=== PATIENT | female | born 1935 | race Caucasian/White ===

== ENCOUNTER → 2019-11-30 | Outpatient (CLI) | payer MEDICARE | END | disposition home or self-care (01) | LOC: RAH 09:06 | PROVIDERS: ATTEND Urology | DX: N20.0 Calculus of kidney (principal) | CPT/HCPCS: 74018; 76100 ==

== ENCOUNTER → 2020-01-01 | Outpatient (CLI) | payer MEDICARE | END | disposition home or self-care (01) | LOC: RAH 14:52 | PROVIDERS: ATTEND Urology | DX: N20.0 Calculus of kidney (principal); N20.2 Calculus of kidney with calculus of ureter | CPT/HCPCS: 74018; 76100 ==

== ENCOUNTER → 2020-06-06 | Outpatient (CLI) | payer MEDICARE | END | disposition home or self-care (01) | LOC: RAH 09:49 | PROVIDERS: ATTEND Urology | DX: N20.1 Calculus of ureter (principal) | CPT/HCPCS: 74018; 76100 ==

== ENCOUNTER → 2020-12-09 | Outpatient (CLI) | payer MEDICARE | END | disposition home or self-care (01) | LOC: RAH 09:04 | PROVIDERS: ATTEND Urology | DX: N20.0 Calculus of kidney (principal); K59.00 Constipation, unspecified | CPT/HCPCS: 74018; 76100 ==

== ENCOUNTER 2022-11-19 06:32 | Observation (INO) | payer MEDICARE ==
[2022-11-15 11:47] LABS: APPEARANCE,URINE CLOUDY (CLEAR); BILIRUBIN,URINE NEGATIVE (NEGATIVE); COLOR,URINE YELLOW (YELLOW); GLUCOSE, URINE (UA) NEGATIVE (NEGATIVE); KETONES,URINE NEGATIVE (NEGATIVE); LEUKOCYTE ESTERASE ,URINE 500 Leu/uL (NEGATIVE); NITRATE,URINE NEGATIVE (NEGATIVE); PROTEIN,URINE 30 mg/dL (NEGATIVE); UROBILINOGEN,URINE 0.2 mg/dL (0.2-1.0)
[2022-11-15 11:57] LABS: BASOPHILS % (AUTO) 0.6 % (0.0-5.0); EOSINOPHILS % (AUTO) 3.2 % (0.0-8.0); HEMATOCRIT 42.7 % (36-48); LYMPHOCYTES % (AUTO) 22.2 % (21.0-51.0); MEAN CORPUSCULAR HEMOGLOBIN 30.6 pg (27.0-33.0); MEAN CORPUSCULAR HGB CONC 32.1 g/dL (32.0-36.0); MEAN CORPUSCULAR VOLUME 95.3 fL (79-99); MONOCYTES % (AUTO) 8.8 % (3.0-13.0); NEUTROPHILS % (AUTO) 64.8 % (40.0-77.0); PLATELET COUNT (AUTO) 303 K/uL (130-400); RED BLOOD CELL COUNT(AUTO) 4.48 MIL/uL (4.00-5.50); RED CELL DISTRIBUTION WIDTH 14.2 % (11.0-15.5); WHITE BLOOD COUNT (AUTO) 9.1 K/uL (4.8-10.8)
[2022-11-15 12:16] LABS: INR 0.97 (0.85-1.15); PROTHROMBIN TIME 10.6 SEC (9.6-11.6)
[2022-11-15 12:17] LABS: PARTIAL THROMBOPLASTIN TIME 29.1 SEC (26.3-35.5)
[2022-11-15 12:37] VITALS: BP 147/72
[2022-11-15 12:45] LABS: BACTERIA,URINE MANY /HPF (None Seen); MUCUS,URINE RARE LPF (None Seen); SQUAMOUS EPITHELIAL CELL,UR RARE /HPF (0-2); TRANSITIONAL EPI CELLS,URINE RARE /HPF (None Seen); WBC,URINE TNTC /HPF (0-1)
[~2022-11-19] VITALS: Ht 157.5 cm; Wt 94.1 kg
[2022-11-19] VITALS (20 sets, daily range): BP systolic 110–152; BP diastolic 38–67
[~2022-11-19 06:32] MED LIST: AMLO-257 PO; METO50 PO
[2022-11-19] MEDS ORDERED: LACTATED RINGERS 1000ML 1,000 ML IV ONE (06:56)
[2022-11-19] MEDS: CEFAZOLIN SODIUM 2 GM VIAL IVPB SCH ×2 (07:16→11:30)
[2022-11-19 09:06] LABS: CREATININE 0.8 mg/dL (0.5-1.5); POTASSIUM 4.1 mmol/L (3.5-5.1)
[2022-11-19] MEDS ORDERED: LIDOCAINE PF 100MG/5ML (2%) SYRINGE 5ML ONE (10:50)
[2022-11-19] MEDS ORDERED: PROPOFOL 10 MG/ML 20ML VIAL IV ONE (10:50)
[2022-11-19] MEDS ORDERED: GLYCOPYRROLATE 1 MG/5 ML SYRINGE ONE (10:50)
[2022-11-19] MEDS ORDERED: FENTANYL CITRATE PF 50 MCG/1 ML 2ML VIAL ONE ×2 (10:51→13:42)
[2022-11-19] MEDS ORDERED: ROCURONIUM 10MG/1ML SYR 10 MG/ML ML ONE (10:52)
[2022-11-19] MEDS ORDERED: EPHEDRINE SULFATE 50 MG/ML AMPULE ONE (11:20)
[2022-11-19] MEDS ORDERED: ONDANSETRON 4MG INJ ONE ×2 (12:37→14:51)
[2022-11-19] MEDS ORDERED: NEOSTIGMINE 5MG/5ML SYR IV ONE (13:08)
[2022-11-19] MEDS ORDERED: BUPIVACAINE/PF 0.25% 10ML VIAL IJ ONE (13:09)
[2022-11-19] MEDS ORDERED: MORPHINE 4 MG SYG ONE (15:39)
[2022-11-19] MEDS ORDERED: MORPHINE 4 MG SYG IVP PRN (18:30)
[2022-11-19] MEDS ORDERED: TRAMADOL HCL 50 MG TABLET PO PRN (18:30)
[2022-11-19] MEDS: IBUPROFEN 800 MG TAB PO SCH (19:42)
[2022-11-19] MEDS ORDERED: LACTATED RINGERS 1000ML 1,000 ML IV SCH (23:00)
[2022-11-20] MEDS: IBUPROFEN 800 MG TAB PO SCH ×2 (03:35→10:43)
[2022-11-20 04:00] VITALS: BP 101/39
[2022-11-20] MEDS: CEFAZOLIN SODIUM 2 GM VIAL IVPB SCH (04:57)
[2022-11-20 05:03] LABS: HEMATOCRIT 36.7 % (36-48); MEAN CORPUSCULAR HEMOGLOBIN 30.7 pg (27.0-33.0); MEAN CORPUSCULAR HGB CONC 32.2 g/dL (32.0-36.0); MEAN CORPUSCULAR VOLUME 95.6 fL (79-99); RED BLOOD CELL COUNT(AUTO) 3.84 MIL/uL (4.00-5.50); RED CELL DISTRIBUTION WIDTH 14.5 % (11.0-15.5); WHITE BLOOD COUNT (AUTO) 7.7 K/uL (4.8-10.8)
[2022-11-20 05:15] LABS: POTASSIUM 4.1 mmol/L (3.5-5.1)
[2022-11-20 08:00] VITALS: BP 128/49
[2022-11-20] MEDS ORDERED: DIPHENHYDRAMINE HCL 25 MG CAPSULE PO ONE (09:00)
[2022-11-20] MEDS ORDERED: METOPROLOL TARTRATE 50 MG TAB PO SCH (09:00)
[2022-11-20] MEDS ORDERED: AMLODIPINE 5 MG TAB PO SCH (09:00)
[2022-11-20 12:00] VITALS: BP 138/57
[2022-11-20 16:00] VITALS: BP 138/57
== END 2022-11-20 16:00 | disposition home or self-care (01) ==
LOC: DAH 06:32 → DAHIP 06:33 → 4AH 06:35
PROVIDERS: ADMIT Student in an Organized Health Care Education/Training Program; ATTEND Student in an Organized Health Care Education/Training Program
DX: C50.911 Malignant neoplasm of unspecified site of right female breast (principal); Z20.822 Contact with and (suspected) exposure to COVID-19; D48.61 Neoplasm of uncertain behavior of right breast; I10 Essential (primary) hypertension; E66.9 Obesity, unspecified; M81.0 Age-related osteoporosis without current pathological fracture; E55.9 Vitamin D deficiency, unspecified; Z87.442 Personal history of urinary calculi; Z79.899 Other long term (current) drug therapy; Z98.890 Other specified postprocedural states; Z90.49 Acquired absence of other specified parts of digestive tract; Z96.659 Presence of unspecified artificial knee joint; Z98.41 Cataract extraction status, right eye; Z98.42 Cataract extraction status, left eye; Z68.38 Body mass index [BMI] 38.0-38.9, adult
CPT/HCPCS: 85025; 85610; 85730; 87088; 87426; 81001; 36415 ×3; 71045; 93005; 19307; 38525; 80048 ×2; 88307; 88374; 88360; 78195; 85027; A6260; G0378 ×21; A4663; J7120 ×2; J3010 ×2; J3490 ×3; J2710; J2001; J2704; J2405 ×2; J2270; J0690; A9541; A4649; A4215; A4223; A4222; A4221; A4600; Q0163

== ENCOUNTER 2022-12-31 16:30 | Emergency (ER) | payer MEDICARE ==
[~2022-12-31] VITALS: Ht 162.6 cm; Wt 83.0 kg
[2022-12-31] MEDS ORDERED: ACETAMINOPHEN 500 MG TABLET PO ONE (18:00)
[2022-12-31 18:37] LABS: BASOPHILS % (AUTO) 0.2 % (0.0-5.0); EOSINOPHILS % (AUTO) 0.2 % (0.0-8.0); HEMATOCRIT 38.7 % (36-48); LYMPHOCYTES % (AUTO) 8.3 % (21.0-51.0); MEAN CORPUSCULAR HGB CONC 33.6 g/dL (32.0-36.0); MEAN CORPUSCULAR VOLUME 92.1 fL (79-99); MONOCYTES % (AUTO) 10.6 % (3.0-13.0); NEUTROPHILS % (AUTO) 80.2 % (40.0-77.0); PLATELET COUNT (AUTO) 277 K/uL (130-400); WHITE BLOOD COUNT (AUTO) 12.8 K/uL (4.8-10.8)
[2022-12-31 18:57] LABS: APPEARANCE,URINE TURBID (CLEAR); BILIRUBIN,URINE NEGATIVE (NEGATIVE); COLOR,URINE LIGHT-ORANGE (YELLOW); GLUCOSE, URINE (UA) NEGATIVE (NEGATIVE); KETONES,URINE 10 mg/dL (NEGATIVE); LEUKOCYTE ESTERASE ,URINE 500 Leu/uL (NEGATIVE); NITRATE,URINE NEGATIVE (NEGATIVE); OCCULT BLOOD,URINE LARGE (NEGATIVE); PH,URINE 5.5 (5.0-8.0); PROTEIN,URINE 70 mg/dL (NEGATIVE); UROBILINOGEN,URINE 0.2 mg/dL (0.2-1.0)
[2022-12-31 19:03] LABS: CREATININE 1.1 mg/dL (0.5-1.5); POTASSIUM 4.4 mmol/L (3.5-5.1)
[2022-12-31 19:12] LABS: ALBUMIN 2.7 g/dL (3.5-5.0)
[2022-12-31 19:28] LABS: BACTERIA,URINE MANY /HPF (None Seen); MUCUS,URINE RARE LPF (None Seen); RBC,URINE 26-50 /HPF (0-1); SQUAMOUS EPITHELIAL CELL,UR FEW /HPF (0-2); WBC,URINE TNTC /HPF (0-1)
[2022-12-31] MEDS ORDERED: 0.9%NACL 1000ML 1,000 ML IV ONE (19:30)
[2022-12-31] MEDS ORDERED: CEFTRIAXONE 1G VIAL IVPB ONE (19:30)
[2022-12-31 21:00] VITALS: BP 119/43
[2022-12-31] MEDS ORDERED: LEVO750T68 PO (21:37)
== END 2022-12-31 22:19 | disposition home or self-care (01) ==
LOC: EDH 16:30
DX: N20.0 Calculus of kidney (principal); N39.0 Urinary tract infection, site not specified; D72.829 Elevated white blood cell count, unspecified; I10 Essential (primary) hypertension; N13.6 Pyonephrosis; Z79.899 Other long term (current) drug therapy; Z85.3 Personal history of malignant neoplasm of breast; Z87.442 Personal history of urinary calculi
CPT/HCPCS: 99285; 74176; 96374; 84484; 80053; 83690; 85025; 87040 ×2; 87088; 83605; 81001; 36415; 93005; J0696

== ENCOUNTER 2023-01-07 15:12 | Inpatient (IN) | payer MEDICARE ==
[~2023-01-07] VITALS: Ht 157.5 cm; Wt 85.2 kg
[~2023-01-07 15:12] MED LIST changes: +LEVO750T68 PO
[2023-01-07] MEDS ORDERED: 0.9%NACL 1000ML 1,000 ML IV ONE (16:30)
[2023-01-07 17:13] LABS: BASOPHILS % (AUTO) 0.3 % (0.0-5.0); EOSINOPHILS % (AUTO) 0.4 % (0.0-8.0); HEMATOCRIT 38.2 % (36-48); LYMPHOCYTES % (AUTO) 8.7 % (21.0-51.0); MEAN CORPUSCULAR HEMOGLOBIN 30.7 pg (27.0-33.0); MEAN CORPUSCULAR HGB CONC 33.2 g/dL (32.0-36.0); MEAN CORPUSCULAR VOLUME 92.3 fL (79-99); MONOCYTES % (AUTO) 8.3 % (3.0-13.0); NEUTROPHILS % (AUTO) 80.3 % (40.0-77.0); PLATELET COUNT (AUTO) 339 K/uL (130-400); RED BLOOD CELL COUNT(AUTO) 4.14 MIL/uL (4.00-5.50); RED CELL DISTRIBUTION WIDTH 13.2 % (11.0-15.5); WHITE BLOOD COUNT (AUTO) 15.8 K/uL (4.8-10.8)
[2023-01-07 17:52] LABS: CREATININE 0.9 mg/dL (0.5-1.5); POTASSIUM 3.9 mmol/L (3.5-5.1)
[2023-01-07 17:57] LABS: ALBUMIN 2.2 g/dL (3.5-5.0); TOTAL PROTEIN, SERUM 7.4 g/dL (6.0-8.3)
[2023-01-07 19:47] LABS: APPEARANCE,URINE CLOUDY (CLEAR); BILIRUBIN,URINE NEGATIVE (NEGATIVE); COLOR,URINE LIGHT-YELLOW (YELLOW); GLUCOSE, URINE (UA) NEGATIVE (NEGATIVE); KETONES,URINE 20 mg/dL (NEGATIVE); LEUKOCYTE ESTERASE ,URINE 250 Leu/uL (NEGATIVE); NITRATE,URINE NEGATIVE (NEGATIVE); OCCULT BLOOD,URINE SMALL (NEGATIVE); PH,URINE 6.5 (5.0-8.0); PROTEIN,URINE 20 mg/dL (NEGATIVE); UROBILINOGEN,URINE 0.2 mg/dL (0.2-1.0)
[2023-01-07 19:49] LABS: BACTERIA,URINE RARE /HPF (None Seen); RBC,URINE 26-50 /HPF (0-1); SQUAMOUS EPITHELIAL CELL,UR MOD /HPF (0-2); WBC,URINE 26-50 /HPF (0-1)
[2023-01-07] MEDS ORDERED: NITROGLYCERIN 0.4 MG SL TAB SL PRN (21:00)
[2023-01-07] MEDS ORDERED: ACETAMINOPHEN 325 MG TAB PO PRN ×2 (21:00)
[2023-01-07] MEDS ORDERED: ONDANSETRON 4MG INJ IV PRN (21:00)
[2023-01-07] MEDS ORDERED: CEFTRIAXONE 1G VIAL IVPB ONE (21:00)
[2023-01-07] MEDS ORDERED: HYDROMORPHONE 0.5 MG SYG (0.5MG/0.5ML) IVP PRN (22:00)
[2023-01-07] MEDS ORDERED: BISACODYL 5 MG TABLET.DR PO ONE (22:00)
[2023-01-07] MEDS ORDERED: SENNOSIDES 8.6 MG TABLET PO PRN (22:00)
[2023-01-07] MEDS: ZOSYN 3.375GM+NS 50ML 50 ML IVPB SCH (22:12)
[2023-01-07] MEDS: 0.9%NACL 1000ML 1,000 ML IV SCH (22:58)
[2023-01-08] MEDS: ZOSYN 3.375GM+NS 50ML 50 ML IVPB SCH ×3 (05:27→20:21)
[2023-01-08 05:45] VITALS: BP 161/63
[2023-01-08 05:47] LABS: BASOPHILS % (AUTO) 0.3 % (0.0-5.0); EOSINOPHILS % (AUTO) 0.6 % (0.0-8.0); HEMATOCRIT 34.8 % (36-48); LYMPHOCYTES % (AUTO) 10.3 % (21.0-51.0); MEAN CORPUSCULAR HEMOGLOBIN 30.8 pg (27.0-33.0); MEAN CORPUSCULAR HGB CONC 32.8 g/dL (32.0-36.0); MEAN CORPUSCULAR VOLUME 94.1 fL (79-99); MONOCYTES % (AUTO) 8.5 % (3.0-13.0); PLATELET COUNT (AUTO) 289 K/uL (130-400); RED CELL DISTRIBUTION WIDTH 13.2 % (11.0-15.5); WHITE BLOOD COUNT (AUTO) 15.8 K/uL (4.8-10.8)
[2023-01-08 06:14] LABS: ALBUMIN 1.8 g/dL (3.5-5.0); CREATININE 0.8 mg/dL (0.5-1.5); MAGNESIUM 1.8 mg/dL (1.80-2.40); POTASSIUM 3.9 mmol/L (3.5-5.1); TOTAL PROTEIN, SERUM 6.5 g/dL (6.0-8.3)
[2023-01-08] MEDS ORDERED: TAMO20TA4 PO (07:42)
[2023-01-08 08:00] VITALS: BP 162/58
[2023-01-08 10:10] LABS: B-TYPE NATRIURETIC PEPTIDE 197 pg/mL (0-100)
[2023-01-08] MEDS: FAMOTIDINE 20MG TAB PO SCH (10:11)
[2023-01-08] MEDS: POLYETHYLENE GLYCOL 3350 17 GM POWD.PACK PO SCH (10:11)
[2023-01-08] MEDS: ENOXAPARIN SODIUM 40 MG/0.4 ML SYRINGE SQ SCH (10:17)
[2023-01-08 10:50] LABS: ERYTHROCYTE SEDIMENTATION RATE 116 MM/HR (0-30)
[2023-01-08 12:17] VITALS: BP 158/69
[2023-01-08] MEDS: 0.9%NACL 1000ML 1,000 ML IV SCH (12:46)
[2023-01-08 16:44] VITALS: BP 166/68
[2023-01-08 20:00] VITALS: BP 166/68
[2023-01-08] MEDS ORDERED: AMLODIPINE 5 MG TAB PO SCH (20:00)
[2023-01-08] MEDS ORDERED: METOPROLOL TARTRATE 1 MG/ML 5ML VIAL IV PRN (20:00)
[2023-01-08 23:56] VITALS: BP 147/60
[2023-01-09 04:00] VITALS: BP 146/63
[2023-01-09 04:35] LABS: BASOPHILS % (AUTO) 0.3 % (0.0-5.0); EOSINOPHILS % (AUTO) 0.9 % (0.0-8.0); HEMATOCRIT 33.3 % (36-48); LYMPHOCYTES % (AUTO) 13.5 % (21.0-51.0); MEAN CORPUSCULAR HEMOGLOBIN 30.8 pg (27.0-33.0); MEAN CORPUSCULAR HGB CONC 32.7 g/dL (32.0-36.0); MEAN CORPUSCULAR VOLUME 94.1 fL (79-99); MONOCYTES % (AUTO) 9.5 % (3.0-13.0); NEUTROPHILS % (AUTO) 74.3 % (40.0-77.0); PLATELET COUNT (AUTO) 312 K/uL (130-400); RED BLOOD CELL COUNT(AUTO) 3.54 MIL/uL (4.00-5.50); RED CELL DISTRIBUTION WIDTH 13.1 % (11.0-15.5); WHITE BLOOD COUNT (AUTO) 13.8 K/uL (4.8-10.8)
[2023-01-09 04:40] LABS: ALBUMIN 1.7 g/dL (3.5-5.0); CREATININE 0.8 mg/dL (0.5-1.5); POTASSIUM 3.4 mmol/L (3.5-5.1); TOTAL PROTEIN, SERUM 6.2 g/dL (6.0-8.3)
[2023-01-09] MEDS: ZOSYN 3.375GM+NS 50ML 50 ML IVPB SCH ×3 (05:25→20:39)
[2023-01-09 08:26] VITALS: BP 142/52
[2023-01-09] MEDS: POLYETHYLENE GLYCOL 3350 17 GM POWD.PACK PO SCH ×2 (09:00→10:16)
[2023-01-09] MEDS ORDERED: TAMOXIFEN CITRATE 10 MG TABLET PO SCH (09:00)
[2023-01-09] MEDS ORDERED: POTASSIUM CHLORIDE 10% ELIXIR 20 MEQ/15 ML UDCUP PO PRN (10:00)
[2023-01-09] MEDS ORDERED: MAGNESIUM 2GM PREMIX 50ML 50 ML IV PRN (10:00)
[2023-01-09] MEDS ORDERED: POTASSIUM CHLORIDE 20MEQ/100ML 100 ML IV PRN (10:00)
[2023-01-09] MEDS ORDERED: MAGNESIUM 2GM PREMIX 50ML 50 ML IV ONE (10:04)
[2023-01-09] MEDS ORDERED: KCL 20 MEQ ERTAB PO ONE (10:05)
[2023-01-09] MEDS: ENOXAPARIN SODIUM 40 MG/0.4 ML SYRINGE SQ SCH (10:17)
[2023-01-09] MEDS: FAMOTIDINE 20MG TAB PO SCH (10:17)
[2023-01-09] MEDS: KCL 20 MEQ ERTAB PO PRN ×3 (10:17→15:53)
[2023-01-09] MEDS: AMLODIPINE 5 MG TAB PO SCH (10:18)
[2023-01-09] MEDS: METOPROLOL TARTRATE 50 MG TAB PO SCH (10:18)
[2023-01-09 11:49] VITALS: BP 161/63
[2023-01-09 16:00] VITALS: BP 152/59
[2023-01-09] MEDS: HYDROMORPHONE 0.5 MG SYG (0.5MG/0.5ML) IVP PRN (19:30)
[2023-01-09 20:24] VITALS: BP 147/71
[2023-01-09] MEDS: TAMOXIFEN CITRATE 10 MG TABLET PO SCH (20:39)
[2023-01-09 23:56] VITALS: BP 132/82
[2023-01-10 03:31] VITALS: BP 135/66
[2023-01-10] MEDS: ZOSYN 3.375GM+NS 50ML 50 ML IVPB SCH ×3 (03:47→20:40)
[2023-01-10 04:07] LABS: BASOPHILS % (AUTO) 0.2 % (0.0-5.0); EOSINOPHILS % (AUTO) 1.6 % (0.0-8.0); HEMATOCRIT 32.6 % (36-48); LYMPHOCYTES % (AUTO) 10.4 % (21.0-51.0); MEAN CORPUSCULAR HGB CONC 33.1 g/dL (32.0-36.0); MEAN CORPUSCULAR VOLUME 93.7 fL (79-99); MONOCYTES % (AUTO) 6.7 % (3.0-13.0); NEUTROPHILS % (AUTO) 80.1 % (40.0-77.0); PLATELET COUNT (AUTO) 316 K/uL (130-400); RED BLOOD CELL COUNT(AUTO) 3.48 MIL/uL (4.00-5.50); RED CELL DISTRIBUTION WIDTH 13.2 % (11.0-15.5); WHITE BLOOD COUNT (AUTO) 12.9 K/uL (4.8-10.8)
[2023-01-10 04:22] LABS: ALBUMIN 1.5 g/dL (3.5-5.0); CREATININE 0.7 mg/dL (0.5-1.5); POTASSIUM 3.8 mmol/L (3.5-5.1)
[2023-01-10 07:39] VITALS: BP 146/61
[2023-01-10] MEDS: AMLODIPINE 5 MG TAB PO SCH (09:04)
[2023-01-10] MEDS: ENOXAPARIN SODIUM 40 MG/0.4 ML SYRINGE SQ SCH (09:04)
[2023-01-10] MEDS: METOPROLOL TARTRATE 50 MG TAB PO SCH (09:04)
[2023-01-10] MEDS: FAMOTIDINE 20MG TAB PO SCH (09:04)
[2023-01-10] MEDS: POLYETHYLENE GLYCOL 3350 17 GM POWD.PACK PO SCH (09:04)
[2023-01-10] MEDS: KCL 20 MEQ ERTAB PO PRN ×2 (09:13→12:57)
[2023-01-10] MEDS ORDERED: FUROSEMIDE 40MG VIAL IV ONE (11:00)
[2023-01-10 12:05] VITALS: BP 134/50
[2023-01-10 15:49] VITALS: BP 154/62
[2023-01-10] MEDS ORDERED: HYDRALAZINE 25MG TABLET PO PRN (19:00)
[2023-01-10 20:00] VITALS: BP 167/63
[2023-01-10] MEDS: TAMOXIFEN CITRATE 10 MG TABLET PO SCH (20:40)
[2023-01-11] VITALS: BP 150/67
[2023-01-11 04:00] VITALS: BP 140/60
[2023-01-11] MEDS: ZOSYN 3.375GM+NS 50ML 50 ML IVPB SCH ×3 (04:08→20:07)
[2023-01-11 05:13] LABS: BASOPHILS % (AUTO) 0.3 % (0.0-5.0); EOSINOPHILS % (AUTO) 1.5 % (0.0-8.0); HEMATOCRIT 34.2 % (36-48); LYMPHOCYTES % (AUTO) 12.4 % (21.0-51.0); MEAN CORPUSCULAR HGB CONC 32.2 g/dL (32.0-36.0); MEAN CORPUSCULAR VOLUME 93.2 fL (79-99); MONOCYTES % (AUTO) 7.6 % (3.0-13.0); NEUTROPHILS % (AUTO) 77.2 % (40.0-77.0); PLATELET COUNT (AUTO) 361 K/uL (130-400); RED BLOOD CELL COUNT(AUTO) 3.67 MIL/uL (4.00-5.50); RED CELL DISTRIBUTION WIDTH 13.1 % (11.0-15.5); WHITE BLOOD COUNT (AUTO) 14.5 K/uL (4.8-10.8)
[2023-01-11] MEDS: HYDROMORPHONE 0.5 MG SYG (0.5MG/0.5ML) IVP PRN (05:20)
[2023-01-11 05:22] LABS: CREATININE 0.9 mg/dL (0.5-1.5); POTASSIUM 3.9 mmol/L (3.5-5.1)
[2023-01-11 05:25] LABS: INR 1.01 (0.85-1.15)
[2023-01-11 05:26] LABS: PARTIAL THROMBOPLASTIN TIME 27.8 SEC (26.3-35.5)
[2023-01-11] MEDS: POLYETHYLENE GLYCOL 3350 17 GM POWD.PACK PO SCH (07:31)
[2023-01-11] MEDS: FAMOTIDINE 20MG TAB PO SCH (07:31)
[2023-01-11] MEDS: ENOXAPARIN SODIUM 40 MG/0.4 ML SYRINGE SQ SCH (07:32)
[2023-01-11 08:04] VITALS: BP 139/60
[2023-01-11] MEDS: AMLODIPINE 5 MG TAB PO SCH (09:00)
[2023-01-11 11:33] VITALS: BP 149/65
[2023-01-11] MEDS: METOPROLOL TARTRATE 50 MG TAB PO SCH (11:51)
[2023-01-11 16:17] VITALS: BP 147/72
[2023-01-11 20:00] VITALS: BP 138/56
[2023-01-11] MEDS: TAMOXIFEN CITRATE 10 MG TABLET PO SCH (20:07)
[2023-01-12] VITALS: BP 134/65
[2023-01-12 04:00] VITALS: BP 135/63
[2023-01-12 04:33] LABS: BASOPHILS % (AUTO) 0.3 % (0.0-5.0); EOSINOPHILS % (AUTO) 1.2 % (0.0-8.0); HEMATOCRIT 33.2 % (36-48); LYMPHOCYTES % (AUTO) 11.7 % (21.0-51.0); MEAN CORPUSCULAR HEMOGLOBIN 30.6 pg (27.0-33.0); MEAN CORPUSCULAR HGB CONC 32.5 g/dL (32.0-36.0); MEAN CORPUSCULAR VOLUME 94.1 fL (79-99); MONOCYTES % (AUTO) 8.5 % (3.0-13.0); NEUTROPHILS % (AUTO) 77.4 % (40.0-77.0); PLATELET COUNT (AUTO) 391 K/uL (130-400); RED BLOOD CELL COUNT(AUTO) 3.53 MIL/uL (4.00-5.50); RED CELL DISTRIBUTION WIDTH 12.9 % (11.0-15.5); WHITE BLOOD COUNT (AUTO) 14.2 K/uL (4.8-10.8)
[2023-01-12 04:54] LABS: ALBUMIN 1.6 g/dL (3.5-5.0); CREATININE 0.8 mg/dL (0.5-1.5); POTASSIUM 3.8 mmol/L (3.5-5.1); TOTAL PROTEIN, SERUM 6.5 g/dL (6.0-8.3)
[2023-01-12] MEDS: ZOSYN 3.375GM+NS 50ML 50 ML IVPB SCH ×3 (05:00→20:16)
[2023-01-12 05:10] LABS: B-TYPE NATRIURETIC PEPTIDE 408 pg/mL (0-100)
[2023-01-12 07:45] VITALS: BP 148/61
[2023-01-12] MEDS: AMLODIPINE 5 MG TAB PO SCH (08:16)
[2023-01-12] MEDS: METOPROLOL TARTRATE 50 MG TAB PO SCH (08:16)
[2023-01-12] MEDS: FAMOTIDINE 20MG TAB PO SCH (08:16)
[2023-01-12] MEDS: POLYETHYLENE GLYCOL 3350 17 GM POWD.PACK PO SCH (09:00)
[2023-01-12] MEDS: ENOXAPARIN SODIUM 40 MG/0.4 ML SYRINGE SQ SCH (09:00)
[2023-01-12] MEDS: KCL 20 MEQ ERTAB PO PRN ×2 (11:34→17:00)
[2023-01-12 11:54] VITALS: BP 149/65
[2023-01-12 16:00] VITALS: BP 159/63
[2023-01-12 20:00] VITALS: BP 171/72
[2023-01-12] MEDS: TAMOXIFEN CITRATE 10 MG TABLET PO SCH (20:16)
[2023-01-13] VITALS (7 sets, daily range): BP systolic 136–163; BP diastolic 45–85
[2023-01-13] MEDS: ZOSYN 3.375GM+NS 50ML 50 ML IVPB SCH ×3 (03:41→19:34)
[2023-01-13 08:06] LABS: HEMATOCRIT 35.1 % (36-48); MEAN CORPUSCULAR HEMOGLOBIN 30.5 pg (27.0-33.0); MEAN CORPUSCULAR HGB CONC 32.5 g/dL (32.0-36.0); MEAN CORPUSCULAR VOLUME 93.9 fL (79-99); RED BLOOD CELL COUNT(AUTO) 3.74 MIL/uL (4.00-5.50); WHITE BLOOD COUNT (AUTO) 11.4 K/uL (4.8-10.8)
[2023-01-13 08:26] LABS: ALBUMIN 1.7 g/dL (3.5-5.0); CREATININE 0.9 mg/dL (0.5-1.5); POTASSIUM 3.9 mmol/L (3.5-5.1); TOTAL PROTEIN, SERUM 6.9 g/dL (6.0-8.3)
[2023-01-13] MEDS: ENOXAPARIN SODIUM 40 MG/0.4 ML SYRINGE SQ SCH (08:38)
[2023-01-13] MEDS: AMLODIPINE 5 MG TAB PO SCH (08:38)
[2023-01-13] MEDS: POLYETHYLENE GLYCOL 3350 17 GM POWD.PACK PO SCH (08:38)
[2023-01-13] MEDS: METOPROLOL TARTRATE 50 MG TAB PO SCH (08:38)
[2023-01-13] MEDS: FAMOTIDINE 20MG TAB PO SCH (08:38)
[2023-01-13] MEDS: TAMOXIFEN CITRATE 10 MG TABLET PO SCH (19:34)
[2023-01-14 04:00] VITALS: BP 150/60
[2023-01-14 04:17] LABS: BASOPHILS % (AUTO) 0.5 % (0.0-5.0); EOSINOPHILS % (AUTO) 2.1 % (0.0-8.0); HEMATOCRIT 34.4 % (36-48); LYMPHOCYTES % (AUTO) 12.4 % (21.0-51.0); MEAN CORPUSCULAR HEMOGLOBIN 31.2 pg (27.0-33.0); MEAN CORPUSCULAR HGB CONC 32.6 g/dL (32.0-36.0); MEAN CORPUSCULAR VOLUME 95.8 fL (79-99); MONOCYTES % (AUTO) 8.7 % (3.0-13.0); NEUTROPHILS % (AUTO) 75.6 % (40.0-77.0); PLATELET COUNT (AUTO) 441 K/uL (130-400); RED BLOOD CELL COUNT(AUTO) 3.59 MIL/uL (4.00-5.50)
[2023-01-14] MEDS: ZOSYN 3.375GM+NS 50ML 50 ML IVPB SCH ×3 (04:31→19:54)
[2023-01-14 05:31] LABS: ALBUMIN 1.7 g/dL (3.5-5.0); CREATININE 0.8 mg/dL (0.5-1.5); MAGNESIUM 2.1 mg/dL (1.80-2.40); POTASSIUM 3.8 mmol/L (3.5-5.1); TOTAL PROTEIN, SERUM 6.7 g/dL (6.0-8.3)
[2023-01-14 07:30] VITALS: BP 159/58
[2023-01-14] MEDS: FAMOTIDINE 20MG TAB PO SCH (08:13)
[2023-01-14] MEDS: ENOXAPARIN SODIUM 40 MG/0.4 ML SYRINGE SQ SCH (08:14)
[2023-01-14] MEDS: AMLODIPINE 5 MG TAB PO SCH (08:14)
[2023-01-14] MEDS: METOPROLOL TARTRATE 50 MG TAB PO SCH (08:14)
[2023-01-14] MEDS: POLYETHYLENE GLYCOL 3350 17 GM POWD.PACK PO SCH ×2 (08:14→08:15)
[2023-01-14 11:30] VITALS: BP 167/57
[2023-01-14 15:30] VITALS: BP 156/78
[2023-01-14] MEDS: TAMOXIFEN CITRATE 10 MG TABLET PO SCH (19:55)
[2023-01-14 20:00] VITALS: BP 153/54
[2023-01-15] VITALS (26 sets, daily range): BP systolic 136–173; BP diastolic 46–75
[2023-01-15] MEDS: ZOSYN 3.375GM+NS 50ML 50 ML IVPB SCH ×3 (05:38→20:58)
[2023-01-15] MEDS: ENOXAPARIN SODIUM 40 MG/0.4 ML SYRINGE SQ SCH (09:00)
[2023-01-15] MEDS: POLYETHYLENE GLYCOL 3350 17 GM POWD.PACK PO SCH (09:00)
[2023-01-15] MEDS: FAMOTIDINE 20MG TAB PO SCH (09:00)
[2023-01-15 09:52] LABS: BASOPHILS % (AUTO) 0.5 % (0.0-5.0); EOSINOPHILS % (AUTO) 1.8 % (0.0-8.0); HEMATOCRIT 33.7 % (36-48); LYMPHOCYTES % (AUTO) 18.5 % (21.0-51.0); MEAN CORPUSCULAR HEMOGLOBIN 30.3 pg (27.0-33.0); MEAN CORPUSCULAR VOLUME 94.4 fL (79-99); MONOCYTES % (AUTO) 8.7 % (3.0-13.0); NEUTROPHILS % (AUTO) 70.1 % (40.0-77.0); PLATELET COUNT (AUTO) 453 K/uL (130-400); RED BLOOD CELL COUNT(AUTO) 3.57 MIL/uL (4.00-5.50); RED CELL DISTRIBUTION WIDTH 12.7 % (11.0-15.5); WHITE BLOOD COUNT (AUTO) 8.4 K/uL (4.8-10.8)
[2023-01-15] MEDS: AMLODIPINE 5 MG TAB PO SCH (11:55)
[2023-01-15] MEDS: METOPROLOL TARTRATE 50 MG TAB PO SCH (11:55)
[2023-01-15] MEDS ORDERED: IOHEXOL-350 50ML VIAL IV ONE (17:00)
[2023-01-15] MEDS ORDERED: PROPOFOL 10 MG/ML 20ML VIAL IV ONE (17:57)
[2023-01-15] MEDS ORDERED: MIDAZOLAM HCL 1 MG/ML 2ML VIAL ONE (17:57)
[2023-01-15] MEDS ORDERED: FENTANYL CITRATE PF 50 MCG/1 ML 2ML VIAL ONE ×2 (17:58→19:05)
[2023-01-15] MEDS ORDERED: ROCURONIUM 10MG/1ML SYR 10 MG/ML ML ONE (18:06)
[2023-01-15] MEDS ORDERED: PHENYLEPHRINE HCL 10 MG/ML 1ML VIAL IV ONE (18:36)
[2023-01-15] MEDS ORDERED: NEOSTIGMINE 5MG/5ML SYR IV ONE (19:05)
[2023-01-15] MEDS ORDERED: GLYCOPYRROLATE 1 MG/5 ML SYRINGE ONE (19:05)
[2023-01-15] MEDS ORDERED: ONDANSETRON 4MG INJ ONE (19:27)
[2023-01-15] MEDS: TAMOXIFEN CITRATE 10 MG TABLET PO SCH (23:39)
[2023-01-16] VITALS (7 sets, daily range): BP systolic 126–160; BP diastolic 57–84
[2023-01-16 04:32] LABS: BASOPHILS % (AUTO) 0.5 % (0.0-5.0); EOSINOPHILS % (AUTO) 1.4 % (0.0-8.0); LYMPHOCYTES % (AUTO) 14.4 % (21.0-51.0); MEAN CORPUSCULAR HEMOGLOBIN 30.4 pg (27.0-33.0); MEAN CORPUSCULAR HGB CONC 32.2 g/dL (32.0-36.0); MEAN CORPUSCULAR VOLUME 94.4 fL (79-99); MONOCYTES % (AUTO) 9.6 % (3.0-13.0); NEUTROPHILS % (AUTO) 72.5 % (40.0-77.0); PLATELET COUNT (AUTO) 431 K/uL (130-400); RED BLOOD CELL COUNT(AUTO) 3.39 MIL/uL (4.00-5.50); RED CELL DISTRIBUTION WIDTH 12.7 % (11.0-15.5); WHITE BLOOD COUNT (AUTO) 8.7 K/uL (4.8-10.8)
[2023-01-16] MEDS: ZOSYN 3.375GM+NS 50ML 50 ML IVPB SCH ×3 (04:58→21:27)
[2023-01-16] MEDS: AMLODIPINE 5 MG TAB PO SCH (08:03)
[2023-01-16] MEDS: ENOXAPARIN SODIUM 40 MG/0.4 ML SYRINGE SQ SCH (08:04)
[2023-01-16] MEDS: FAMOTIDINE 20MG TAB PO SCH (08:04)
[2023-01-16] MEDS: METOPROLOL TARTRATE 50 MG TAB PO SCH (08:04)
[2023-01-16] MEDS: POLYETHYLENE GLYCOL 3350 17 GM POWD.PACK PO SCH (08:05)
[2023-01-16 14:17] LABS: INR 1.03 (0.85-1.15); PROTHROMBIN TIME 11.2 SEC (9.6-11.6)
[2023-01-16 14:19] LABS: PARTIAL THROMBOPLASTIN TIME 28.9 SEC (26.3-35.5)
[2023-01-16] MEDS: TAMOXIFEN CITRATE 10 MG TABLET PO SCH (21:27)
[2023-01-17] VITALS: BP 160/87
[2023-01-17 04:00] VITALS: BP 127/61
[2023-01-17] MEDS: ZOSYN 3.375GM+NS 50ML 50 ML IVPB SCH ×2 (04:27→13:00)
[2023-01-17 08:00] VITALS: BP 145/58
[2023-01-17] MEDS: POLYETHYLENE GLYCOL 3350 17 GM POWD.PACK PO SCH (09:35)
[2023-01-17] MEDS: FAMOTIDINE 20MG TAB PO SCH (09:35)
[2023-01-17] MEDS: METOPROLOL TARTRATE 50 MG TAB PO SCH (09:35)
[2023-01-17] MEDS: ENOXAPARIN SODIUM 40 MG/0.4 ML SYRINGE SQ SCH (09:35)
[2023-01-17] MEDS: AMLODIPINE 5 MG TAB PO SCH (09:35)
[2023-01-17 11:39] VITALS: BP 157/69
[2023-01-17 15:56] VITALS: BP 156/66
== END 2023-01-17 17:30 | disposition home or self-care (01) | DRG 853 ==
LOC: EDH 15:12 → EDHIP 20:48 → 4BH 01-08 05:38
PROVIDERS: ADMIT Family Medicine; ATTEND Family Medicine
PROC: 0T778DZ Dilation of Left Ureter with Intraluminal Device, Via Natural or Artificial Opening Endoscopic (ICD-10-PCS; 2023-01-15)
PROC: 02HV33Z Insertion of Infusion Device into Superior Vena Cava, Percutaneous Approach (ICD-10-PCS; 2023-01-15)
PROC: 0TC78ZZ Extirpation of Matter from Left Ureter, Via Natural or Artificial Opening Endoscopic (ICD-10-PCS; principal; 2023-01-15 18:30)
DX: A41.59 Other Gram-negative sepsis (principal); E43 Unspecified severe protein-calorie malnutrition; J96.01 Acute respiratory failure with hypoxia; Z16.24 Resistance to multiple antibiotics; N39.0 Urinary tract infection, site not specified; N20.1 Calculus of ureter; Z20.822 Contact with and (suspected) exposure to COVID-19; E11.9 Type 2 diabetes mellitus without complications; B96.20 Unspecified Escherichia coli [E. coli] as the cause of diseases classified elsewhere; D64.9 Anemia, unspecified; E66.01 Morbid (severe) obesity due to excess calories; K57.30 Diverticulosis of large intestine without perforation or abscess without bleeding; E87.70 Fluid overload, unspecified; I10 Essential (primary) hypertension; Z66 Do not resuscitate; Z90.11 Acquired absence of right breast and nipple; Z87.442 Personal history of urinary calculi; Z85.3 Personal history of malignant neoplasm of breast; Z79.810 Long term (current) use of selective estrogen receptor modulators (SERMs); Z80.3 Family history of malignant neoplasm of breast; Z68.34 Body mass index [BMI] 34.0-34.9, adult
CPT/HCPCS: 36415; 71045; 74018; 74176; 76770; 80048; 80053; 81001; 82360; 83605; 83735; 83880; 84145; 85025; 85027; 85610; 85651; 85730; 86140; 87040; 87088; 87635; 93005; 97039; C1894; G0378; J0696; J1170; J1650; J1940; J2250; J2370; J2405; J2543; J2704; J2710; J3010; J3475; J3490; J7030; Q9967